=== PATIENT | female | born 1985 | race African-American/Black ===

== ENCOUNTER 2020-02-14 14:35 | Emergency (ER) | payer OTHER ==
[~2020-02-14] VITALS: Ht 175.3 cm; Wt 138.3 kg
[2020-02-14 15:35] LABS: URINE BILIRUBIN NEGATIVE (Negative); URINE BLOOD 3+ (Negative); URINE GLUCOSE-RANDOM* NEGATIVE (Negative); URINE KETONES NEGATIVE (Negative); URINE NITRITE-REFLEX NEGATIVE (Negative); URINE PROTEIN (DIPSTICK) 3+ (Negative); URINE SPECIFIC GRAVITY >= 1.030 (1.005-1.035); URINE UROBILINOGEN 0.2 E.U./dl (0.2-1.0)
[2020-02-14 15:36] LABS: URINE CLARITY CLOUDY; URINE COLOR RED
[2020-02-14 15:38] LABS: BACTERIA-REFLEX None Seen /HPF (None Seen); CRYSTALS None Seen /LPF (None Seen); SQUAMOUS None Seen /LPF (0-3); URINE RBC >20 Many /HPF (0-2); URINE WBC-REFLEX None Seen /HPF (0-5)
[2020-02-14 17:01] LABS: HEMATOCRIT 29.9 % (37.0-47.0); HEMOGLOBIN 10.2 gm/dL (12.0-15.0); MCH 31.4 pg (26.0-34.0); MCV 92.6 fL (80.0-100.0); PLATELET COUNT 183 thou/uL (150-400); RBC 3.23 mil/uL (4.20-5.00); RDW 13.4 % (10.5-14.5); WBC 3.5 thou/uL (4.0-11.0)
[2020-02-14 17:07] LABS: CALCIUM 9.2 mg/dL (8.5-10.1); CREATININE 1.3 mg/dL (0.6-1.0); POTASSIUM 3.7 mmol/L (3.5-5.1)
[2020-02-14 17:19] LABS: ABSOLUTE NEUTROPHILS 1.4 thou/uL (1.4-8.2)
[2020-02-14] MEDS ORDERED: NORCO 5-325 TA1 EAC2 PO (18:30)
[2020-02-14 18:53] VITALS: BP 125/67
== END 2020-02-14 19:36 | disposition home or self-care (01) ==
LOC: ER 14:35
PROVIDERS: Emergency Medicine; Physician Assistant
DX: N93.8 Other specified abnormal uterine and vaginal bleeding (principal); N83.9 Noninflammatory disorder of ovary, fallopian tube and broad ligament, unspecified; R42 Dizziness and giddiness; Z90.49 Acquired absence of other specified parts of digestive tract; Z85.43 Personal history of malignant neoplasm of ovary; Z85.6 Personal history of leukemia; Z88.8 Allergy status to other drugs, medicaments and biological substances